=== PATIENT | female | born 1940 | race Caucasian/White ===

== ENCOUNTER → 2016-05-10 | Outpatient (CLI) | payer MEDICARE, OTHER | END | disposition home or self-care (01) | LOC: GMAL 10:12 | PROVIDERS: ATTEND Family Medicine | DX: D51.3 Other dietary vitamin B12 deficiency anemia (principal); E55.9 Vitamin D deficiency, unspecified ==

== ENCOUNTER → 2016-08-08 | Outpatient (CLI) | payer MEDICARE, OTHER ==
--- NOTE | 2016-08-08 16:39 | MAM ---
History: Well woman exam. Date of exam: 08/08/2016 Services provided: Bilateral full field digital screening mammography. CAD, the images were reviewed with R2 computer aided detection. FINDINGS: Glandular tissue is scattered glandular contour with increased mammographic density. Comparison with 2013 exam. Nodular mammographic asymmetry right breast 12-1 o'clock approximately 4 to 5 cm from the nipple has associated microcalcifications. Left breast parenchyma is stable and unchanged in its distribution and demonstrates no mammographic abnormality. IMPRESSION: Incomplete exam Recommendation: True lateral view right breast with spot compression magnification films in the true lateral and craniocaudal projections. BIRAD CATEGORY: 0 INCOMPLETE Electronically signed by: Trista Fernandes MD 08/08/2016 4:38 PM CDT Workstation: [id number]
== END | disposition home or self-care (01) ==
LOC: MAMMO 09:03
PROVIDERS: ATTEND Family Medicine
DX: Z12.31 Encounter for screening mammogram for malignant neoplasm of breast (principal)

== ENCOUNTER → 2016-09-08 | Outpatient (CLI) | payer MEDICARE, OTHER ==
--- NOTE | 2016-09-08 14:08 | MAM ---
History: New group of microcalcifications right breast 12-1 o'clock DATE OF SERVICE: 09/08/2016 Services provided: Full field digital diagnostic right mammography. Directed right breast sonography. True lateral and spot compression magnification views are obtained. New group of microcalcifications are shown 12-1 o'clock right breast approximately 5 cm from the nipple. Internal morphology of the 6 mm group of microcalcifications vary. Associated adjacent mammographic asymmetry measures approximately 10 mm in size however visualization distinctly from background parenchymal pattern is difficult, directed ultrasound is requested. Directed ultrasound evaluation right breast 12-1 o'clock demonstrates small benign-appearing internal mammary lymph nodes and subcentimeter simple cysts. There is no sonographically suspicious finding. IMPRESSION: Indeterminate new microcalcifications right breast 12-1 o'clock. Background fibrocystic change. Recommendation: Stereotactic or surgical biopsy. Findings and recommendations were communicated to the patient by the technologist. BIRAD CATEGORY: 4 SUSPICIOUS FINDINGS Electronically signed by: Trista Fernandes MD 09/08/2016 2:08 PM CDT Workstation: [id number]
== END | disposition home or self-care (01) ==
LOC: MAMMO 12:58
PROVIDERS: ATTEND Family Medicine
DX: R92.8 Other abnormal and inconclusive findings on diagnostic imaging of breast (principal)

== ENCOUNTER 2016-09-29 06:00 | Day surgery (SDC) | payer MEDICARE, OTHER ==
--- NOTE | 2016-09-28 09:36 | RAD ---
EXAM DESCRIPTION: Chest,2 Views CLINICAL HISTORY: 76 years Female, PRE OP COMPARISON: 09/01/2014 IMPRESSION: Heart size and pulmonary vascularity are within normal limits. A moderate-sized hiatal hernia is demonstrated. The lungs are hyperexpanded with emphysema in the apices. No confluent airspace consolidation, pleural effusion, or pneumothorax. The bones are demineralized. Consider follow-up DEXA scan. Multilevel thoracic spondylosis and dextroconvex scoliosis. No acute osseous abnormality. Electronically signed by: Juventino Haider MD 09/28/2016 9:34 AM CDT
[2016-09-29] MEDS ORDERED: LACTATED RINGERS 1,000 ML ONE (06:52)
[2016-09-29] MEDS ORDERED: LIDOCAINE 1% 10 ML VIAL INJ ONE (07:00)
[2016-09-29] MEDS ORDERED: PROPOFOL 200 MG/20 ML VIAL IV ONE (07:00)
[2016-09-29] MEDS ORDERED: fentaNYL CITRATE INJ 50 MCG/ML AMP ONE (07:00)
[2016-09-29] MEDS ORDERED: LIDOCAINE 1% 50 ML VIAL INJ ONE (10:22)
[2016-09-29] MEDS ORDERED: SODIUM BICARBONATE SYRINGE 50 MEQ/50 ML SYG IV ONE (11:06)
--- NOTE | 2016-09-29 12:10 | MAM ---
EXAM DESCRIPTION: Breast-Needle Localization Rt CLINICAL HISTORY: 76 years FemaleABNORMAL MAMMO COMPARISON: Right breast diagnostic digital mammography 09/08/2016. Right breast targeted ultrasound same visit. TECHNIQUE: The procedure was explained to the patient with risks and benefits. The patient gave verbal and written consent. The area for localization was identified in the 1230 clock position of the middle third of the right breast. The patient was placed in the digital mammographic unit in the lateral medial position, utilizing the special compression paddle with localizing window. Lateral medial image shows calcification group of interest. Sterile preparation. Intradermal injection of standard mixture sodium bicarbonate and Xylocaine. The [place] needle-wire system was introduced through the paddle window into the lateral right breast. Repeat lateral medial image, with needle in place. The breast was moved into the craniocaudal position; images with repeat positioning showing proper needle depth. Continuing sterile technique, the needle was withdrawn, leaving hook wire in place. Repeat craniocaudal image. Repeat lateral medial image with wire only. The hard copy images were labeled for surgical guidance. The patient tolerated the procedure well with no immediate complications. FINDINGS: The images demonstrate the abnormal group of microcalcifications at the 1230 clock position of the middle third of the right breast approximately 6 cm from the nipple. Final images show the calcifications anterior to the thickened segment of the distal localizing wire and lateral to the hook of the wire. IMPRESSION: Successful mammographic guided needle wire localization of right breast group of abnormal microcalcifications. The procedure results were discussed with Dr. Dashawn Roland. Digital mammography of the biopsy specimen to follow excisional biopsy. Electronically signed by: Anson Dixon MD 09/29/2016 12:08 PM CDT Workstation: [id number]
--- NOTE | 2016-09-29 12:23 | MAM ---
EXAM DESCRIPTION: Breast Surgical Specimen CLINICAL HISTORY: 76 yearsFemaleABNORMAL MAMMO COMPARISON: Mammographic guided, needle wire localization of right breast group of microcalcifications today. TECHNIQUE: Digital mammography of right breast biopsy specimen, not within a surgical specimen container. FINDINGS: The right breast biopsy specimen contains the abnormal group of microcalcifications seen on today's procedure images and also seen on images from previous examinations. The distal wire and hook are seen within the specimen. The group of microcalcifications are seen to the left of the distal thickening of the wire. IMPRESSION: Successful, digital mammographic guided, needle wire localization of a group of microcalcifications in the right breast, with microcalcification group, wire and wire hook, present in the biopsy specimen. Pathology results pending. Electronically signed by: Anson Dixon MD 09/29/2016 12:21 PM CDT Workstation: [id number]
--- NOTE | 2016-09-29 13:09 | OP ---
DATE OF PROCEDURE: 09/29/16 PREOPERATIVE DIAGNOSIS: 1. Irregular calcifications, 12 to 1 o'clock position in the right breast. POSTOPERATIVE DIAGNOSIS: 1. Irregular calcifications, 12 to 1 o'clock position in the right breast. PROCEDURE: 1. Excision of right breast lesion after needle localization. SURGEON: Dashawn Roland MD. DRAFTER APPRENTICE: None. ANESTHESIA: Local infiltration with 0.25% Marcaine with epinephrine and IV sedation by Anesthesia. INDICATION: The patient is a 76-year-old female who has a strong family history with her mother and a maternal aunt with breast cancer. Routine mammography revealed an area deep in the right breast t the 12:30 to 1 o'clock position of irregular calcifications that are new. She was brought to the Surgical Suite today for excision of same after the lesion was localized using a [place] wire by Anesthesia. FINDINGS: The radiograph of the specimen reveals the calcifications within the specimen. PROCEDURE: After the patient underwent the needle localization in Radiology, she was brought to the Surgical Suite and placed in the supine position. The right breast was prepped and draped in the usual sterile manner. A surgical time-out was taken. She was then sedated. Curvilinear incision was fashioned above the right areola, first with the margin pen and then with infiltration of anesthesia . The skin was incised with a knife and then dissection was carried down through the skin and subcutaneous tissue using electrocautery. The guidewire was identified and transected. It was followed medially, taking the tissue surrounding the guidewire. It was excised, marked on three margins, and sent for radiologic evaluation. The wound was then irrigated with saline. Hemostasis was obtained with electrocautery. When we had been informed that the calcifications were within the specimen, then the wound was closed in layers with 3-0 Vicryl simple sutures and then the skin edges were approximated with 4-0 Vicryl subcuticular sutures, benzoin and Steri-Strips. Sterile pressure dressing was applied. The patient was awakened and taken to the Ambulatory Unit in stable condition. Estimated blood loss was less than 25 mL. All sponge, needle and instrument counts were correct. [facility][id number] [facility]
[2016-09-29 13:39] VITALS: O2SAT 100
[2016-09-29 13:40] VITALS: BP 132/76; TEMP 97.5
== END 2016-09-29 12:35 | disposition home or self-care (01) ==
LOC: AMB 06:00
PROVIDERS: ATTEND Surgery
DX: R92.0 Mammographic microcalcification found on diagnostic imaging of breast (principal); C50.211 Malignant neoplasm of upper-inner quadrant of right female breast; K21.9 Gastro-esophageal reflux disease without esophagitis; D64.9 Anemia, unspecified; E53.8 Deficiency of other specified B group vitamins; J44.9 Chronic obstructive pulmonary disease, unspecified; R01.1 Cardiac murmur, unspecified; Z17.0 Estrogen receptor positive status [ER+]; Z80.3 Family history of malignant neoplasm of breast
CPT/HCPCS: 00400; 19120; 36415; 71020; 76098; 80048; 81001; 85025; 87086; 87088; 87186; 88305; 88341; 88342; 88360; 93005; J3010; J3490; J7120

== ENCOUNTER → 2016-10-04 | Outpatient (CLI) | payer MEDICARE, OTHER | LOC: LAB.O 11:44 | PROVIDERS: ATTEND Surgery | DX: C50.211 Malignant neoplasm of upper-inner quadrant of right female breast (principal) ==

== ENCOUNTER → 2016-10-06 | Outpatient (CLI) | payer MEDICARE, OTHER ==
--- NOTE | 2016-10-06 16:28 | NM ---
EXAM DESCRIPTION: Bone Scan, Whole Body CLINICAL HISTORY: RT BREAST CANCER COMPARISON: None Available. RADIOPHARMACEUTICAL: 29.6 mCi technetium 99 M MDP IV FINDINGS: Total body imaging was obtained. Uptake is observed in the joints and spine consistent with arthritis. No evidence for fracture or metastatic disease is observed. IMPRESSION: 1. Negative for metastatic disease. Electronically signed by: Sachin Cristina MD 10/06/2016 4:26 PM CDT
== END ==
LOC: NM 07:27
PROVIDERS: ATTEND Surgery
DX: C50.211 Malignant neoplasm of upper-inner quadrant of right female breast (principal)

== ENCOUNTER 2016-10-31 05:45 | Inpatient (IN) | payer MEDICARE, OTHER ==
[2016-10-31] MEDS ORDERED: LACTATED RINGERS 1,000 ML ONE (06:59)
[2016-10-31] MEDS ORDERED: ceFAZolin SODIUM 1 GM VIAL ONE (07:01)
[2016-10-31] MEDS ORDERED: SODIUM CHL 0.9% 100ML MINI-BAG 100 ML IVPB ONE (07:01)
[2016-10-31] MEDS ORDERED: fentaNYL CITRATE INJ 50 MCG/ML AMP ONE (09:10)
[2016-10-31] MEDS ORDERED: MIDAZOLAM INJ 5 MG/5 ML VIAL ONE (09:10)
[2016-10-31] MEDS ORDERED: ACETAMINOPHEN IV 1000MG 100 ML ONE (09:51)
--- NOTE | 2016-10-31 09:55 | HP ---
CHIEF COMPLAINT: Biopsy-proven carcinoma of the right breast. HISTORY OF PRESENT ILLNESS: The patient is a 76-year-old female who on routine mammography was found to have an abnormality for which she underwent open biopsy , needle localized, which revealed an invasive carcinoma. Metastatic workup was negative. After the risks, benefits and alternatives to surgery including lumpectomy with radiation therapy and sentinel node biopsy were discussed with the patient and her brother, who has power of e learning specialist, she was brought to the Surgical Suite today for right modified radical mastectomy. PAST MEDICAL HISTORY: 1. Gastroesophageal reflux disease with ulcers. 2. Diverticulosis. 3. Osteopenia. PAST SURGICAL HISTORY: 1. Benign breast excision years ago. 2. Ankle fracture. 3. EGD. 4. Colonoscopy. CURRENT MEDICATIONS: 1. Citrucel. 2. Prilosec p.r.n. 3. Fish oil. 4. Vitamin D. ALLERGIES: NO KNOWN DRUG ALLERGIES. FAMILY HISTORY: Positive for mother and her aunt with carcinoma of the breast. SOCIAL HISTORY: The patient is single, never been . She does not use alcohol or tobacco. REVIEW OF SYSTEMS: Noncontributory except as in the history of present illness and the fact that she has no chest pain, no shortness of breath, no urinary symptoms, no change in her bowel habits, blood per rectum or melena. She does have swelling in her right ankle, which is the ankle that was operated on after a fracture. PHYSICAL EXAMINATION: GENERAL: The patient is awake, alert, cooperative, in no acute distress. VITAL SIGNS: The patient is currently afebrile, normotensive. HEENT: Sclerae nonicteric. Mucous membranes moist. NECK: Without adenopathy. There is no supraclavicular or axillary adenopathy. BREAST: The left breast is without discrete mass, skin change, or nipple discharge. The right breast reveals a healing scar above the areola with no erythema, induration, fluctuance or drainage. CHEST: Equal breath sounds bilaterally. HEART: Regular rate and rhythm. ABDOMEN: Soft and benign without mass or megaly. PELVIC/RECTAL: Deferred. EXTREMITIES: Without cyanosis, clubbing or edema. LABORATORY: Insignificant colony count of mixed stefany. Creatinine 0.91, potassium 3.9. White count 3.9, hemoglobin 14, platelet count 239,000, differential normal. Urinalysis revealed trace leukocyte esterase and 10 to 20 white blood cells and 1+ bacteria. Chest x-ray was noted to be clear. ASSESSMENT: 1. Biopsy-proven carcinoma of the right breast. PLAN: Admission for right modified radical mastectomy aver IV Ancef. A hospitalist consultation will be obtained postoperatively for following her blood pressure, etc. [facility][id number] [facility]
[2016-10-31] MEDS ORDERED: HYDROmorphone HCL INJ 2 MG/ML VIAL ONE (10:18)
[2016-10-31] MEDS ORDERED: HYDROcodone 5MG/APAP 325MG 1 EA TAB PO PRN (11:49)
[2016-10-31] MEDS ORDERED: HYDROmorphone HCL INJ 2 MG/ML VIAL IV PRN (11:49)
[2016-10-31] MEDS ORDERED: MAGNESIUM HYDROXIDE 30 ML UD PO PRN (11:49)
[2016-10-31] MEDS ORDERED: LIDOCAINE 1% 10 ML VIAL INJ ONE (12:00)
[2016-10-31] MEDS ORDERED: METOCLOPRAMIDE HCL INJ 10 MG/2 ML VIAL IV ONE (12:00)
[2016-10-31] MEDS ORDERED: ePHEDrine SULF 50 MG/ML IV ONE (12:00)
[2016-10-31] MEDS ORDERED: KETOROLAC TROMETHAMINE INJ 30 MG/ML VIAL IV ONE (12:00)
[2016-10-31] MEDS ORDERED: PROPOFOL 200 MG/20 ML VIAL IV ONE (12:00)
[2016-10-31] MEDS ORDERED: DEXAMETHASONE INJ 10 MG/ML VIAL IV ONE (12:00)
[2016-10-31] MEDS ORDERED: raNITIdine HCL INJ 25 MG/ML VIAL IV ONE (12:00)
[2016-10-31] MEDS: LACTATED RINGERS 1,000 ML IVS PRN (13:17)
--- NOTE | 2016-10-31 14:07 | OP ---
DATE OF PROCEDURE: 10/31/16 PREOPERATIVE DIAGNOSIS: 1. Carcinoma of the right breast. POSTOPERATIVE DIAGNOSIS: 1. Carcinoma of the right breast. PROCEDURE: 1. Right modified radical mastectomy. SURGEON: Dashawn Roland MD. RN PERIOPERATIVE: None. ANESTHESIA: General laryngeal mask anesthesia. INDICATION: The patient is a 76-year-old female with biopsy-proven carcinoma of the right breast. She has a negative metastatic workup and she was brought to the Surgical Suite today for mastectomy after the risks, benefits and alternatives were discussed at length with her and her brother and sister-in- law who have power of deputy commonwealth's attorney. FINDINGS: The base of the biopsy defect abutted the rectus muscle and the opening was closed with a single [id number]-sv-[id number] suture of 3-0 Vicryl and cuff of muscle was taken deep to this area. PROCEDURE: After adequate general laryngeal mask anesthesia was obtained, the patient was prepped and draped in the usual sterile manner. A surgical time- out was taken. The patient had been given 2 grams of Ancef. An elliptical incision was fashioned around a scar at the 9 o'clock position, the nipple- areolar complex and the biopsy site, first with a marking pen, then the superior flap was taken, first with a sharp knife, then Anthony thyroid grasping forceps were used to elevate the skin edge and the superior flap taken using electrocautery in the usual manner. This was taken to the clavipectoral fascia superiorly, to the sternum medially and into the axilla laterally. When this was done, a warm sponge was placed under the flap and the inferior flap was taken in a like manner down to the rectus muscle inferiorly. When this was done , the breast was taken off the rectus muscle with sharp dissection and electrocautery from superior to inferior and then from medial to laterally. As noted, the biopsy site was identified and a small opening was made. This was closed with a single ufrfrp-um-[id number] suture of 3-0 Vicryl and then a cuff of muscle underlying this area was excised and sent with the pathological specimen. Dissection was then carried into the axilla and axillary dissection was performed with the superior limits being the axillary vein and the posterior limits being the thoracodorsal bundle and the long thoracic nerve of Jackman. The specimen was then sent for pathological evaluation. Hemostasis was obtained with electrocautery. Two drains were introduced through the inferior flap, one on the chest wall and one in the axilla. They were sutured in place with 3-0 Nylon ligatures. The wound was then irrigated with saline. Hemostasis was again noted to be adequate. The incision was closed with running 3-0 subcuticular Vicryl suture. When this was in place and had not been tightened and tied, the wound was irrigated through the wound and aspirated through the drains. The sutures was tightened and tied. The skin edges were then approximated with a skin stapler. Sterile pressure dressing was applied. The patient was awakened and taken to the Recovery Room in good and stable condition. Estimated blood loss was less than 150 mL. All sponge, needle and instrument counts were correct. [facility][id number] [facility]
[2016-10-31] MEDS ORDERED: CEFAZOLIN SODIUM 2 GRAM IV 50 ML IVPB ONE ×2 (14:58→19:45)
[2016-10-31] MEDS ORDERED: ceFAZolin SODIUM 2 GM in SODIUM CHLORIDE 0.9% 100ML 100 ML IVPB SCH (15:00)
[2016-10-31] MEDS ORDERED: ONDANSETRON INJ 4 MG/2 ML VIAL ONE (15:25)
[2016-10-31] MEDS ORDERED: CYANOCOBALAMIN INJ 1,000 MCG/ML INJ IM ONE (15:28)
[2016-10-31] MEDS: ONDANSETRON INJ 4 MG/2 ML VIAL IV PRN ×2 (15:33→21:06)
[2016-10-31] MEDS: CEFAZOLIN SODIUM 2 GRAM IV 2 GM in PREMIX BAG 1 BAG IVPB SCH (15:57)
--- NOTE | 2016-10-31 16:09 | CONS ---
SUPERVISING PHYSICIAN: Kalen Wheatley MD DATE OF CONSULTATION: 10/31/16 CHIEF COMPLAINT: Biopsy-proven carcinoma of the right breast. HISTORY OF PRESENT ILLNESS: This is a 76-year-old female patient who on routine mammography was found to have an abnormality for which she underwent open biopsy , needle localized, which revealed an invasive carcinoma. Her metastatic workup was negative. Today, she is seen postoperatively after a right modified radical mastectomy performed by Dr. Dashawn Roland, general surgeon. Preoperatively, when inserting her Gomez catheter, it was noted that she had a small amount of bloody drainage from her vagina. Otherwise, postoperatively, she is awake at this time. She has no complaints other than some mild nausea and postoperative pain. She is still quite lethargic but can answer questions appropriately and her medical power of managing attorney is at her bedside. PAST MEDICAL HISTORY: 1. Gastroesophageal reflux disease. 2. Bleeding ulcers with anemia, resolved after an EGD per Dr. Weller. 3. Recent breast cancer diagnosis in September of 2016. 4. B12 deficiency. 5. Vitamin D3 deficiency. PAST SURGICAL HISTORY: 1. Lumpectomy of the left breast. 2. Right ankle surgery with pins. OUTPATIENT MEDICATIONS: Per the EMR and awaiting and verification. ALLERGIES: NO KNOWN DRUG ALLERGIES. FAMILY HISTORY: Father at age 82 due to Parkinson's. Mother had breast cancer. SOCIAL HISTORY: She is retired. She has never been . She has no children. She denies any smoking, ETOH, or illicit drug use. REVIEW OF SYSTEMS: GENERAL: Denies fever, fatigue or weight changes. HEENT: Denies sinus symptoms, ear pain, vision changes or sore throat. RESPIRATORY: Denies wheezing, coughing or shortness of breath. CARDIAC: Denies chest pain, palpitations or tachycardia. GASTROINTESTINAL: Complains of some mild nausea. Denies constipation or diarrhea. GENITOURINARY: Denies hematuria, nocturia, dysuria. Denies any vaginal discharge or vaginal bleeding. NEUROLOGIC: Denies headache, dizziness, or seizures. EXTREMITIES: Complains of occasional right ankle swelling when she is on it too much. PHYSICAL EXAMINATION: VITAL SIGNS: Temperature 97.2. Heart rate 88. Blood pressure 113/67. Respiratory rate 14. O2 saturation 93% on room air. GENERAL: This is a 76-year-old female patient who is sitting up in her hospital bed. She is in no acute distress. HEENT: Normocephalic, atraumatic. Pupils are equal and reactive. Oropharynx is clear. NECK: Supple without mass. RESPIRATORY: Clear to auscultation bilaterally. CHEST: There is equal rise and fall of the chest with inspiration and expiration. She does have a dressing to her chest that is dry and intact. CARDIOVASCULAR: Regular rate and rhythm. ABDOMEN: Soft, nondistended, nontender. Bowel sounds are hypoactive. EXTREMITIES: No cyanosis, clubbing or edema. NEUROLOGIC: She is somewhat lethargic, but oriented times three. She answers simple questions appropriately. GENITOURINARY: She does have a Gomez catheter in place. There is no noted bleeding from the vagina at this time. LABORATORY: WBCs 3.9, hemoglobin 14.4, hematocrit 43.9, platelet count 239. Chemistries are within normal limits except her BUN is slightly elevated at 21. Urine is essentially within normal limits with the exception of urine leukocyte esterase is a trace and urine WBCs are 10 to 20. All other labs and films have been reviewed via the EMR. ASSESSMENT: 1. Biopsy-proven carcinoma of the right breast status post right modified radical mastectomy per Dr. Dashawn Roland, general surgeon, postoperative day 0. 2. Gastroesophageal reflux disease. 3. Ankle fracture. 4. Benign breast excision years ago. 5. Vitamin B12 deficiency. 6. Vitamin D3 deficiency. PLAN: We will continue present supportive care. I will restart her home medications as needed. I have ordered some Zofran for her nausea. I have also ordered one dose of B12. Dr. Roland will address surgical issues. It is to be noted that on an outpatient level, she will need a followup for the vaginal bleeding with a possible ultrasound and/or CHAIR CANER referral. Otherwise, we will continue to monitor the patient closely and followup as needed. Dr. Wheatley is the collaborating physician and available for consultation. #[id number] [facility]
[2016-10-31] MEDS ORDERED: ENOXAPARIN SODIUM 40 MG/0.4 ML SYG SUBCU ONE (19:45)
[2016-10-31] MEDS: ENOXAPARIN SODIUM 40 MG/0.4 ML SYG SUBCU SCH (21:05)
[2016-11-01] MEDS: LACTATED RINGERS 1,000 ML IVS PRN (02:52)
[2016-11-01] MEDS: CEFAZOLIN SODIUM 2 GRAM IV 2 GM in PREMIX BAG 1 BAG IVPB SCH ×2 (03:00→09:31)
[2016-11-01] MEDS: PANTOPRAZOLE SODIUM IV 40 MG VIAL IV SCH ×2 (06:23→09:45)
[2016-11-01] MEDS ORDERED: CEFAZOLIN SODIUM 2 GRAM IV 50 ML IVPB ONE (09:54)
[2016-11-01] MEDS ORDERED: CEFAZOLIN SODIUM 2 GRAM IV 2 GM in PREMIX BAG 1 BAG IVPB SCH (11:00)
--- NOTE | 2016-11-01 17:23 | PN ---
DATE: 11/01/16 SUPERVISING PHYSICIAN: Kalen Wheatley M.D. SUBJECTIVE: The patient is sitting up in her hospital bed. She has no complaints of shortness of breath, nausea, vomiting, abdominal pain or chest pain. She actually feels quite good now and has finished her meal. OBJECTIVE: VITAL SIGNS: She is afebrile, heart rate 90, blood pressure 101/61, respiratory rate 18, O2 sat is 94% on room air. RESPIRATORY: Clear to auscultation bilaterally. CARDIAC: Regular rate and rhythm. The dressing to her chest is dry and intact. She has a J-P drain with a very small amount of serous fluid. ABDOMEN: Soft, nondistended, non-tender. Bowel sounds are positive. EXTREMITIES: No cyanosis, clubbing or edema. NEUROLOGIC: She is awake, alert and oriented times three. LABORATORY: WBCs are 7.5, hemoglobin 12.4, hematocrit 37.0, platelets 204. Electrolytes are within normal limits, BUN 21, creatinine 0.91 All other labs and films have been reviewed via the EMR. ASSESSMENT: 1. Biopsy proven carcinoma of the right breast status post right modified radical mastectomy per Dr. Dashawn Roland, General Surgeon, postoperative day #1. 2. Gastroesophageal reflux disease. 3. History of ankle fracture. 4. Benign breast excision years ago. 5. Vitamin B12 deficiency. 6. Vitamin D3 deficiency. PLAN: We will continue present supportive care. I have encouraged good pulmonary hygiene. Surgical issues will be per Dr. Roland. She will need an outpatient referral for vaginal bleeding with gynecology on discharge. Otherwise will continue to monitor the patient closely and follow as needed. Dr. Wheatley is the collaborating physician available for consultation. #[id number] [facility]
[2016-11-01] MEDS: ENOXAPARIN SODIUM 40 MG/0.4 ML SYG SUBCU SCH (20:42)
[2016-11-01] MEDS ORDERED: SODIUM CHLORIDE 0.9% (FLUSH) 10 ML SYG IV SCH (21:00)
[2016-11-02] MEDS: PANTOPRAZOLE SODIUM IV 40 MG VIAL IV SCH (07:44)
--- NOTE | 2016-11-02 11:07 | DS ---
FINAL DIAGNOSIS: 1. Biopsy-proven carcinoma of the right breast, pathology pending. 2. Dementia. SURGICAL PROCEDURE: The patient underwent right modified radical mastectomy on 10/31/16. HISTORY OF PRESENT ILLNESS: The patient is a 76-year-old female who on routine mammography was found to have an abnormality for which she underwent open biopsy , needle localized, which revealed an invasive carcinoma. Metastatic workup was negative. After the risks, benefits and alternatives to surgery including lumpectomy with radiation therapy and sentinel node biopsy were discussed with the patient and her brother, who has power of patent attorney, she was brought to the Surgical Suite today for right modified radical mastectomy. LABORATORY: On the day prior to discharge, her hemoglobin was 12.4, white count 7.5, 78.9% neutrophils, platelet count 204,000. Pathology is pending. HOSPITAL COURSE: The patient was admitted to the Surgical Suite on the morning of 10/31/16 and underwent the procedure under general anesthesia. She tolerated the procedure well. Blood loss was 100 to 150 mL. She was tolerating clear liquids by the next morning. Her Gomez catheter was discontinued. Her hemoglobin was noted to be stable and her IV was saline locked. She began ambulating in the room and using the bathroom. She was advanced to a regular diet, which she tolerated by the second postoperative morning. She was afebrile, normotensive, awake and alert with little complaints of pain. Dressing change was performed which revealed both flaps to be viable, the incision clean without erythema, fluctuance or drainage. The chest wall drain was still somewhat bloody. The drainage was moderate at the time of discharge. She was discharged home in the late morning of the second postoperative day. CONDITION ON DISCHARGE: Good. PROGNOSIS: Good pending pathology report. DISPOSITION: She is discharged on her regular diet and she is to take all her home medications. There were no new prescriptions given. She will followup with me on 11/07/16, and [facility] will be consulted to do daily dressing changes and to milk her HOLLIE drain. The family also knows to call me if there are questions or problems prior to her appointment. #[id number] [facility]
[2016-11-02 13:23] VITALS: BP 129/77; TEMP 96.6; O2SAT 99
== END 2016-11-02 12:35 | disposition home health service (06) | DRG 581 ==
LOC: AMB 05:45 → MS 13:00
PROVIDERS: ADMIT Surgery; ATTEND Surgery
PROC: 07B50ZX Excision of Right Axillary Lymphatic, Open Approach, Diagnostic (ICD-10-PCS; 2016-10-31)
PROC: 0HTT0ZZ Resection of Right Breast, Open Approach (ICD-10-PCS; principal; 2016-10-31 09:18)
DX: C50.911 Malignant neoplasm of unspecified site of right female breast (principal); K21.9 Gastro-esophageal reflux disease without esophagitis; E53.8 Deficiency of other specified B group vitamins; M85.80 Other specified disorders of bone density and structure, unspecified site; E55.9 Vitamin D deficiency, unspecified; F03.90 Unspecified dementia, unspecified severity, without behavioral disturbance, psychotic disturbance, mood disturbance, and anxiety; Z80.3 Family history of malignant neoplasm of breast

== ENCOUNTER → 2016-11-11 | Outpatient (CLI) | payer MEDICARE, OTHER | END | disposition home or self-care (01) | LOC: YCHH 09:17 | PROVIDERS: ATTEND Family Medicine | DX: E55.9 Vitamin D deficiency, unspecified (principal); R53.83 Other fatigue; E78.5 Hyperlipidemia, unspecified ==

== ENCOUNTER → 2017-07-04 | Outpatient (CLI) | payer MEDICARE, OTHER | LOC: GMAL 11:01 | PROVIDERS: ATTEND Family Medicine | DX: D51.3 Other dietary vitamin B12 deficiency anemia (principal); R53.82 Chronic fatigue, unspecified; E55.9 Vitamin D deficiency, unspecified ==

== ENCOUNTER → 2017-11-22 | Outpatient (CLI) | payer MEDICARE, OTHER ==
--- NOTE | 2017-11-23 15:19 | MAM ---
EXAM DESCRIPTION: 3D Screening LEFT BREAST : Digital Mammography. CLINICAL HISTORY: 77 years Female SCREEN . right breast cancer diagnosed September 2016 followed by mastectomy.. No current complaints. COMPARISON: 2-D digital screening bilateral study 08/08/2016. TECHNIQUE: Left breast CC and MLO projection full-field images, Digital tomosynthesis mammographic technique. Left digital 2-D full-field MLO images. CAD not utilized. FINDINGS: Left breast parenchymal density pattern is: Heterogeneously dense breast tissue, which may obscure small masses. No skin thickening or nipple retraction. Scattered solitary microcalcifications. No suspicious groups of microcalcifications. No new focal, stellate mass or density, focal asymmetry , and no suspicious microcalcifications left breast Stable mammograms compared to prior study. Taking into account, differences in mammographic technique. IMPRESSION: Benign exam. BIRAD CATEGORY: 2 BENIGN FINDINGS. RECOMMENDATIONS: FOLLOW UP: Routine digital left screening, one year interval from November 2017. Written communication explaining the IMPRESSION and follow-up, will be mailed to the patient and referring health care provider. According to the [employer], yearly mammograms are recommended starting at age 40 and continuing as long as a woman is in good health. Any breast change noted on a breast self-exam should be reported promptly to the patient's healthcare provider. Breast MRI is recommended for women with an approximately 20-25% or greater lifetime risk of breast cancer, including women with a strong family history of breast or ovarian cancer and women who have been treated for Hodgkin's disease. A negative mammographic report should not delay tissue diagnosis in patients with significant clinical history or physical findings. Extremely dense breast tissue limits the sensitivity of digital mammography. Electronically signed by: Anson Dixon MD 11/23/2017 3:18 PM CDT
== END ==
LOC: MAMMO 08:30
PROVIDERS: ATTEND Family Medicine
DX: Z12.31 Encounter for screening mammogram for malignant neoplasm of breast (principal)

== ENCOUNTER → 2018-01-03 | Outpatient (CLI) | payer MEDICARE, OTHER | LOC: GMAL 10:37 | PROVIDERS: ATTEND Family Medicine | DX: E55.9 Vitamin D deficiency, unspecified (principal) ==

== ENCOUNTER → 2018-07-06 | Outpatient (CLI) | payer MEDICARE, OTHER | LOC: GMAL 11:11 | PROVIDERS: ATTEND Family Medicine | DX: E78.00 Pure hypercholesterolemia, unspecified (principal); Z79.899 Other long term (current) drug therapy ==

== ENCOUNTER 2018-11-12 05:28 | Day surgery (SDC) | payer MEDICARE, OTHER ==
[2018-11-12] MEDS ORDERED: PROPARACAINE 0.5% OPHTH SOL 15 ML BTTL ONE (05:53)
[2018-11-12] MEDS ORDERED: TROP 1%/CYCLOPEN 1%/PHENYL 2% DROPS ONE (05:53)
[2018-11-12] MEDS: PROPARACAINE 0.5% OPHTH SOL 15 ML BTTL RIGHT_EYE ONE (07:15)
[2018-11-12] MEDS: LIDOCAINE 1% MPF 2 ML VIAL INJ ONE (07:21)
[2018-11-12] MEDS: MOXIFLOXACIN HCL (OPHTH) 1 DROP DROPS RIGHT_EYE ONE ×2 (07:22→07:31)
[2018-11-12] MEDS: DEXAMETHASONE 0.1% OPHTH SOL 1 DROP RIGHT_EYE ONE ×2 (07:22→07:31)
[2018-11-12] MEDS: TOBRAMYCIN SULF 0.3 % OPHT SOL 1 DROP RIGHT_EYE ONE ×2 (07:22→07:31)
[2018-11-12] MEDS: BRIMONIDINE 0.2% OPHTH DROPS RIGHT_EYE ONE ×3 (07:22→07:32)
[2018-11-12] MEDS ORDERED: MIDAZOLAM INJ 2 MG/2 ML VIAL IV ONE (07:30)
== END 2018-11-12 08:19 | disposition home or self-care (01) ==
LOC: AMB 05:28
PROVIDERS: ATTEND Ophthalmology
DX: H25.11 Age-related nuclear cataract, right eye (principal)
CPT/HCPCS: 00142; 66984; J2250

== ENCOUNTER 2018-12-24 05:12 | Day surgery (SDC) | payer MEDICARE, OTHER ==
[2018-12-24] MEDS ORDERED: PROPARACAINE 0.5% OPHTH SOL 15 ML BTTL ONE (08:51)
[2018-12-24] MEDS ORDERED: TROP 1%/CYCLOPEN 1%/PHENYL 2% DROPS ONE (08:51)
[2018-12-24] MEDS ORDERED: MIDAZOLAM INJ 2 MG/2 ML VIAL ONE (10:58)
[2018-12-24] MEDS ORDERED: LIDOCAINE 1% MPF 2 ML VIAL INJ ONE (11:09)
[2018-12-24] MEDS ORDERED: DEXAMETHASONE 0.1% OPHTH SOL 1 DROP RIGHT_EYE ONE (11:10)
[2018-12-24] MEDS ORDERED: MOXIFLOXACIN HCL (OPHTH) 1 DROP DROPS RIGHT_EYE ONE (11:10)
[2018-12-24] MEDS ORDERED: TOBRAMYCIN SULF 0.3 % OPHT SOL 1 DROP RIGHT_EYE ONE (11:10)
[2018-12-24] MEDS ORDERED: BRIMONIDINE 0.2% OPHTH DROPS RIGHT_EYE ONE (11:11)
[2018-12-24] MEDS ORDERED: BRIMONIDINE 0.2% OPHTH DROPS LEFT_EYE ONE (11:19)
[2018-12-24] MEDS ORDERED: MOXIFLOXACIN HCL (OPHTH) 1 DROP DROPS LEFT_EYE ONE (11:19)
[2018-12-24] MEDS ORDERED: TOBRAMYCIN SULF 0.3 % OPHT SOL 1 DROP LEFT_EYE ONE (11:19)
[2018-12-24] MEDS ORDERED: DEXAMETHASONE 0.1% OPHTH SOL 1 DROP LEFT_EYE ONE (11:19)
== END 2018-12-24 11:55 | disposition home or self-care (01) ==
LOC: AMB 05:12
PROVIDERS: ATTEND Ophthalmology
DX: H25.12 Age-related nuclear cataract, left eye (principal)
CPT/HCPCS: 00142; 66984; J2250

== ENCOUNTER → 2019-01-29 | Outpatient (CLI) | payer MEDICARE, OTHER ==
--- NOTE | 2019-01-30 15:51 | MAM ---
EXAM DESCRIPTION: 3D Screening BILATERAL : Digital Mammography. CLINICAL HISTORY: 78 years Female ANNUAL SCREENING . Personal history of breast cancer. Right mastectomy. No complaints.. Lifetime risk of developing breast cancer (Tyrer-Cuzick model)(%): Calculated due to personal history of breast cancer. COMPARISON: Left breast screening digital breast tomosynthesis 22 November 2017.. TECHNIQUE: Left CC and MLO projection full-field images,digital tomosynthesis mammographic technique. Left breast digital 2-D full-field MLO images. CAD not available for tomosynthesis or 2-D images. FINDINGS: Left breast parenchymal density pattern is: Scattered areas of fibroglandular density. No skin thickening or nipple retraction. Scattered solitary microcalcifications. Calcifications more medial and lateral. Posterior inferior skin mole. No new focal, stellate mass or density, focal asymmetry , and no suspicious microcalcifications left breast. Stable mammograms compared to prior study. IMPRESSION: Benign exam. BIRAD CATEGORY: 2 BENIGN FINDINGS. RECOMMENDATIONS: FOLLOW UP: Routine digital left breast mammographic screening, one year interval from January 2019. Written communication explaining the IMPRESSION and follow-up, will be mailed to the patient and referring health care provider. According to the [employer], yearly mammograms are recommended starting at age 40 and continuing as long as a woman is in good health. Any breast change noted on a breast self-exam should be reported promptly to the patient's healthcare provider. Breast MRI is recommended for women with an approximately 20-25% or greater lifetime risk of breast cancer, including women with a strong family history of breast or ovarian cancer and women who have been treated for Hodgkin's disease. A negative mammographic report should not delay tissue diagnosis in patients with significant clinical history or physical findings. Extremely dense breast tissue limits the sensitivity of digital mammography. Electronically signed by: Anson Dixon MD 01/30/2019 3:49 PM [employer]
== END ==
LOC: MAMMO 13:25
PROVIDERS: ATTEND Family Medicine
DX: Z12.31 Encounter for screening mammogram for malignant neoplasm of breast (principal)

== ENCOUNTER → 2019-07-12 | Outpatient (CLI) | payer MEDICARE, OTHER | LOC: GMAL 11:26 | PROVIDERS: ATTEND Family Medicine | DX: D51.3 Other dietary vitamin B12 deficiency anemia (principal); R53.82 Chronic fatigue, unspecified; E55.9 Vitamin D deficiency, unspecified; E78.00 Pure hypercholesterolemia, unspecified; Z79.899 Other long term (current) drug therapy ==